=== PATIENT | male | born 1965 | race Caucasian/White ===

== ENCOUNTER 2021-01-29 13:06 | Inpatient (IN) | payer OTHER ==
[~2021-01-29] VITALS: Ht 180.3 cm; Wt 112.1 kg
--- NOTE | 2021-01-29 14:40 | NUR ---
PA at bedside for exam.
[2021-01-29 14:49] LABS: BASOPHILS % (AUTO) 1 % (0-1); EOSINOPHILS % (AUTO) 2 % (1-7); LYMPHOCYTES % (AUTO) 18 % (22-44); MEAN CORPUSCULAR HEMOGLOBIN 29.7 pg (27.5-34.5); MEAN CORPUSCULAR HGB CONC 34.9 g/dL (33.2-36.2); MEAN PLATELET VOLUME 6.2 fL (7.4-10.4); MONOCYTES % (AUTO) 8 % (2-9); NEUTROPHILS % (AUTO) 71 % (42-75); PLATELET COUNT 650 x10^3/uL (130-400); RED BLOOD COUNT 4.71 x10^6/uL (4.38-5.82); RED CELL DISTRIBUTION WIDTH 13.7 % (9.4-14.8)
[2021-01-29 14:50] LABS: ALBUMIN 3.3 g/dL (3.4-5.0); ANION GAP 5 mmol/L (5-15); CALCIUM 9.3 mg/dL (8.5-10.1); CHLORIDE 104 mmol/L (98-107); CREATININE 1.07 mg/dL (0.7-1.3)
--- NOTE | 2021-01-29 14:50 | NUR ---
insurance inspector completed. Awaiting PA orders.
[2021-01-29] MEDS ORDERED: SODIUM CHLORIDE 0.9% 1,000ML IVBOLUS ONE (15:30)
[2021-01-29] MEDS ORDERED: PIPERACILLIN/TAZO 3.375 GM in DEXTROSE 5% 50 ML IVPB ONE (15:30)
[2021-01-29] MEDS ORDERED: SODIUM CHLORIDE FLUSH 10ML SYR IVF ONE (15:30)
--- NOTE | 2021-01-29 15:44 | NUR ---
cnc maintenance technician finsihing with first set of BC and labs. IV started with second set of BC drawn. Site secured and NS bolus and Zosyn IVPB started after BC x2 completed.
[2021-01-29 15:53] LABS: HCT (SEDRATE) 38.8 % (39.2-51.8)
--- NOTE | 2021-01-29 15:56 | NUR ---
RECEIVED REPORT FROM ASIA HERMOSILLO. PT RESTING ON FARIBALUIS ENRIQUE. NADN. FRIAS.
--- NOTE | 2021-01-29 15:56 | NUR ---
Bedside report given to RN for end of shift report and care transferred. Pt requests another blanket.
[2021-01-29] MEDS ORDERED: TAMS-11 PO (15:57)
[2021-01-29] MEDS ORDERED: DULA0.75 SQ (15:58)
--- NOTE | 2021-01-29 16:47 | NUR ---
PT CHART REVIEWED AND PLACED FOR RECHECK.
--- NOTE | 2021-01-29 17:03 | NUR ---
PT RESTING ON GURNEY. NADN. FRIAS.
--- NOTE | 2021-01-29 17:28 | NUR ---
ERP DR. JUAN AT BEDSIDE FOR RE-EVAL.
--- NOTE | 2021-01-29 18:29 | NUR ---
PT RESTING ON GURNEY. NADN. FRIAS.
--- NOTE | 2021-01-29 19:22 | NUR ---
PT RESTING ON GURNEY. NADN. FRIAS.
--- NOTE | 2021-01-29 19:29 | NUR ---
REPORT GIVEN TO FLOYD BEARDEN RN. ALL QUESTIONS ANSWERED. AWAITING PT TRANSPORT.
[2021-01-29] MEDS ORDERED: morphine SULFATE 10 MG/ML, 1ML IVPush PRN (19:30)
[2021-01-29] MEDS ORDERED: hydrALAzine 20 MG/ML, 1ML IVPush PRN (19:30)
[2021-01-29] MEDS ORDERED: MELATONIN 5 MG TABLET PO PRN (19:30)
[2021-01-29] MEDS ORDERED: ONDANSETRON 2MG/ML, 2ML IVPush PRN (19:30)
[2021-01-29] MEDS ORDERED: VANCOMYCIN 1,600 MG in SODIUM CHLORIDE 0.9% 250 ML IVPB SCH (19:36)
[2021-01-29 19:52] VITALS: BP 126/83
[2021-01-29] MEDS ORDERED: GLUCAGON 1 MG IM PRN (20:00)
[2021-01-29] MEDS ORDERED: DEXTROSE 50%, 50ML SYRINGE IVPush PRN (20:00)
[2021-01-29] MEDS ORDERED: PHARMACY MAY ADJ FOR RENAL FX MC SCH (20:00)
[2021-01-29] MEDS: ACETAMINOPHEN 325 MG TABLET PO PRN (20:03)
[2021-01-29] MEDS ORDERED: PHARMACOKINETIC MONITORING MC PRN (20:30)
[2021-01-29] MEDS ORDERED: PHARMACOKINETIC CONSULTATION MC ONE (20:30)
[2021-01-29] MEDS ORDERED: VANCOMYCIN PER PHARMACY MC PRN (20:30)
[2021-01-29] MEDS ORDERED: VANCOMYCIN 2,500 MG in SODIUM CHLORIDE 0.9% 500 ML IV ONE (20:30)
[2021-01-29] MEDS ORDERED: INSULIN LISPRO 100 UNITS/ML, PEN SQ-INSULIN SCH (21:00)
[2021-01-29 21:06] LABS: BASOPHILS % (AUTO) 1 % (0-1); EOSINOPHILS % (AUTO) 2 % (1-7); LYMPHOCYTES % (AUTO) 21 % (22-44); MEAN CORPUSCULAR HEMOGLOBIN 29.3 pg (27.5-34.5); MEAN CORPUSCULAR HGB CONC 34.2 g/dL (33.2-36.2); MEAN PLATELET VOLUME 6.4 fL (7.4-10.4); MONOCYTES % (AUTO) 7 % (2-9); NEUTROPHILS % (AUTO) 69 % (42-75); PLATELET COUNT 608 x10^3/uL (130-400); RED BLOOD COUNT 4.31 x10^6/uL (4.38-5.82); RED CELL DISTRIBUTION WIDTH 14.1 % (9.4-14.8)
[2021-01-29] MEDS: INSULIN REGULAR 100 UNITS/ML, 3ML VIAL SQ-INSULIN SCH (23:22)
[2021-01-29] MEDS: CEFEPIME 1 GM in DEXTROSE 5% 50 ML IV SCH (23:22)
[2021-01-30 01:22] VITALS: BP 113/66
[2021-01-30] MEDS: ACETAMINOPHEN 325 MG TABLET PO PRN ×2 (04:41→15:15)
[2021-01-30] MEDS: LACTATED RINGERS 1,000 ML IV SCH ×2 (04:41→20:59)
[2021-01-30 06:05] LABS: ALBUMIN 2.6 g/dL (3.4-5.0); ANION GAP 5 mmol/L (5-15); CHLORIDE 105 mmol/L (98-107)
[2021-01-30 06:11] LABS: ALANINE AMINOTRANSFERASE 19 U/L (12-78); ALKALINE PHOSPHATASE 90 U/L (45-117); BILIRUBIN,TOTAL 0.5 mg/dL (0.2-1.0); CALCIUM 8.7 mg/dL (8.5-10.1); CHOL/HDL RATIO 4.2; CHOLESTEROL, TOTAL 138 mg/dL (140-239); CREATININE 0.87 mg/dL (0.7-1.3); HDL CHOL % 24 % (26-37); HDL CHOLESTEROL (DIRECT) 33 mg/dL (40-60); LDL CHOLESTEROL,CALCULATED 83 mg/dL (54-169); LDL/HDL RATIO 2.5 (0.5-3.0); TOTAL PROTEIN 7.2 g/dL (6.4-8.2); TRIGLYCERIDES 112 mg/dL (50-200); VLDL CHOLESTEROL 22 mg/dL (0-25)
[2021-01-30] MEDS: INSULIN REGULAR 100 UNITS/ML, 3ML VIAL SQ-INSULIN SCH ×4 (07:00→21:08)
[2021-01-30 07:35] VITALS: BP 125/73
[2021-01-30] MEDS ORDERED: TAMSULOSIN 0.4 MG CAP.ER.24H PO SCH (09:00)
[2021-01-30] MEDS: CEFEPIME 1 GM in DEXTROSE 5% 50 ML IV SCH ×2 (10:35→23:04)
[2021-01-30] MEDS: VANCOMYCIN 2,000 MG in SODIUM CHLORIDE 0.9% 500 ML IV SCH (12:14)
[2021-01-30] MEDS ORDERED: PROMETHAZINE 25 MG/ML, 1ML IVPush PRN (13:30)
[2021-01-30] MEDS ORDERED: MEPERIDINE/PF 25MG/0.5ML IVPush PRN (13:30)
[2021-01-30] MEDS ORDERED: LABETALOL 5MG/ML, 20ML IV PRN (13:30)
[2021-01-30] MEDS ORDERED: FENTANYL PF 100 MCG/2ML IV PRN (13:30)
[2021-01-30] MEDS ORDERED: HALOPERIDOL 5 MG/ML IV PRN (13:30)
[2021-01-30] MEDS ORDERED: OXYcodone 5 MG/5 ML ORAL.SOL UDC PO PRN (13:30)
[2021-01-30] MEDS ORDERED: DIPHENHYDRAMINE 50 MG/ML, 1ML IVPush PRN (13:30)
[2021-01-30] MEDS ORDERED: HYDROmorphone 1 MG/ML, 1ML INJ IVPush PRN (13:30)
[2021-01-30] MEDS ORDERED: hydrALAzine 20 MG/ML, 1ML IV PRN (13:30)
[2021-01-30] MEDS ORDERED: FENTANYL PF 100 MCG/2ML ONE (13:43)
[2021-01-30] MEDS ORDERED: BUPIVACAINE/PF 0.5% ONE (14:07)
[2021-01-30] MEDS ORDERED: PROPOFOL 10 MG/ML, 20ML ONE (14:12)
[2021-01-30] MEDS ORDERED: SUCCINYLCHOLINE 20 MG/ML, 10ML ONE (14:12)
[2021-01-30] MEDS ORDERED: ROCURONIUM 10 MG/ML,10ML ONE (14:12)
[2021-01-30] MEDS ORDERED: ONDANSETRON 2MG/ML, 2ML ONE (14:12)
[2021-01-30] MEDS ORDERED: ACETAMINOPHEN 650 MG/20.3 ML UDC ONE (15:11)
[2021-01-30] MEDS ORDERED: OXYcodone 5 MG/5 ML ORAL.SOL UDC ONE (15:12)
[2021-01-30 16:09] VITALS: BP 121/74
[2021-01-30] MEDS ORDERED: ENOXAPARIN 40 MG/0.4 ML ONE (16:25)
[2021-01-30] MEDS: ENOXAPARIN 40 MG/0.4 ML SQ SCH (16:29)
[2021-01-30 19:31] VITALS: BP 138/77
[2021-01-31 00:09] VITALS: BP 135/74
[2021-01-31] MEDS: VANCOMYCIN 2,000 MG in SODIUM CHLORIDE 0.9% 500 ML IV SCH ×3 (00:09→23:39)
[2021-01-31] MEDS: ACETAMINOPHEN 325 MG TABLET PO PRN ×3 (01:37→14:44)
[2021-01-31 06:40] VITALS: BP 138/79
[2021-01-31] MEDS: INSULIN REGULAR 100 UNITS/ML, 3ML VIAL SQ-INSULIN SCH ×4 (07:00→20:07)
[2021-01-31 09:07] LABS: BASOPHILS % (AUTO) 1 % (0-1); EOSINOPHILS % (AUTO) 2 % (1-7); LYMPHOCYTES % (AUTO) 17 % (22-44); MEAN CORPUSCULAR HEMOGLOBIN 28.8 pg (27.5-34.5); MEAN CORPUSCULAR HGB CONC 33.7 g/dL (33.2-36.2); MEAN PLATELET VOLUME 6.3 fL (7.4-10.4); MONOCYTES % (AUTO) 6 % (2-9); NEUTROPHILS % (AUTO) 74 % (42-75); PLATELET COUNT 625 x10^3/uL (130-400); RED BLOOD COUNT 4.22 x10^6/uL (4.38-5.82); RED CELL DISTRIBUTION WIDTH 13.5 % (9.4-14.8)
[2021-01-31 09:20] LABS: ANION GAP 4 mmol/L (5-15); CALCIUM 8.9 mg/dL (8.5-10.1); CHLORIDE 106 mmol/L (98-107)
[2021-01-31 09:22] LABS: CREATININE 0.82 mg/dL (0.7-1.3)
[2021-01-31] MEDS: LACTATED RINGERS 1,000 ML IV SCH (11:00)
[2021-01-31] MEDS: CEFEPIME 1 GM in DEXTROSE 5% 50 ML IV SCH ×2 (11:00→22:31)
[2021-01-31 13:09] VITALS: BP 148/74
[2021-01-31] MEDS: ENOXAPARIN 40 MG/0.4 ML SQ SCH (16:26)
[2021-01-31 18:26] VITALS: BP 149/70
[2021-01-31] MEDS: TAMSULOSIN 0.4 MG CAP.ER.24H PO SCH (20:07)
[2021-02-01 00:23] VITALS: BP 156/84
[2021-02-01] MEDS: LACTATED RINGERS 1,000 ML IV SCH (01:19)
[2021-02-01 06:12] LABS: HCT (SEDRATE) 37.7 % (39.2-51.8)
[2021-02-01 06:13] LABS: BASOPHILS % (AUTO) 1 % (0-1); EOSINOPHILS % (AUTO) 4 % (1-7); LYMPHOCYTES % (AUTO) 22 % (22-44); MEAN PLATELET VOLUME 6.1 fL (7.4-10.4); MONOCYTES % (AUTO) 8 % (2-9); NEUTROPHILS % (AUTO) 66 % (42-75); PLATELET COUNT 651 x10^3/uL (130-400); RED BLOOD COUNT 4.48 x10^6/uL (4.38-5.82); RED CELL DISTRIBUTION WIDTH 13.5 % (9.4-14.8)
[2021-02-01] MEDS: INSULIN REGULAR 100 UNITS/ML, 3ML VIAL SQ-INSULIN SCH ×4 (07:56→20:12)
[2021-02-01 07:58] VITALS: BP 149/93
[2021-02-01] MEDS: CEFEPIME 1 GM in DEXTROSE 5% 50 ML IV SCH ×2 (10:53→23:13)
[2021-02-01] MEDS: VANCOMYCIN 2,000 MG in SODIUM CHLORIDE 0.9% 500 ML IV SCH (12:34)
[2021-02-01 12:47] VITALS: BP 117/67
[2021-02-01] MEDS: ENOXAPARIN 40 MG/0.4 ML SQ SCH (16:19)
[2021-02-01 18:45] VITALS: BP 132/76
[2021-02-01] MEDS: TAMSULOSIN 0.4 MG CAP.ER.24H PO SCH (19:59)
[2021-02-02] MEDS: VANCOMYCIN 2,000 MG in SODIUM CHLORIDE 0.9% 500 ML IV SCH ×2 (00:10→12:24)
[2021-02-02 00:26] VITALS: BP 150/79
[2021-02-02 06:50] VITALS: BP 133/87
[2021-02-02] MEDS: INSULIN REGULAR 100 UNITS/ML, 3ML VIAL SQ-INSULIN SCH ×2 (07:38→11:39)
[2021-02-02] MEDS: CEFEPIME 1 GM in DEXTROSE 5% 50 ML IV SCH (11:44)
[2021-02-02 13:36] VITALS: BP 137/80
[2021-02-02] MEDS ORDERED: AMOX1TAB64 PO (14:06)
== END 2021-02-02 18:06 | disposition home or self-care (01) | DRG 854 ==
LOC: ED 18:30 → EDIP 18:34 → 3N 19:47
PROVIDERS: ADMIT Internal Medicine; ATTEND Hospitalist
PROC: 0Y6S0Z0 Detachment at Left 2nd Toe, Complete, Open Approach (ICD-10-PCS; principal; 2021-01-30 12:30)
DX: A41.9 Sepsis, unspecified organism (principal); L03.116 Cellulitis of left lower limb; M86.172 Other acute osteomyelitis, left ankle and foot; E11.621 Type 2 diabetes mellitus with foot ulcer; E11.69 Type 2 diabetes mellitus with other specified complication; E88.09 Other disorders of plasma-protein metabolism, not elsewhere classified; F17.210 Nicotine dependence, cigarettes, uncomplicated; L97.529 Non-pressure chronic ulcer of other part of left foot with unspecified severity; N40.0 Benign prostatic hyperplasia without lower urinary tract symptoms; Z20.822 Contact with and (suspected) exposure to COVID-19; Z79.4 Long term (current) use of insulin; Z79.899 Other long term (current) drug therapy
CPT/HCPCS: 36415; 73630; 84145; 96365; 99285; S0020; 80048; 80053; 80061; 80202; 82040; 82533; 82962; 83036; 83605; 83735; 84100; 84443; 85025; 85651; 86140; 87015; 87040; 87070; 87075; 87077; 87102; 87116; 87176; 87186; 87205; 87206; 87252; 87635; 88305; 88311; G0378; J0692; J1650; J1815; J2405; J2543; J2704; J3010; J3370; J0330; J2270; J7030; J7040; J7120